=== PATIENT | female | born 1995 | race Caucasian/White ===

== ENCOUNTER 2021-10-11 11:50 | Emergency (ER) | payer OTHER ==
[~2021-10-11] VITALS: Ht 165.1 cm; Wt 65.8 kg
[2021-10-11 12:02] VITALS: BP 105/64
--- NOTE | 2021-10-11 12:04 | NUR ---
AT BEDSIDE FOR EVAL.
[2021-10-11] MEDS ORDERED: PRED50TA PO (12:07)
--- NOTE | 2021-10-11 12:14 | NUR ---
Patient discharged to home in stable condition. Written and verbal after care instructions given. Patient verbalizes understanding of instruction.
== END 2021-10-11 12:15 | disposition home or self-care (01) ==
LOC: ER 11:53
DX: G51.0 Bell's palsy (principal); F32.A Depression, unspecified; F41.9 Anxiety disorder, unspecified; F17.200 Nicotine dependence, unspecified, uncomplicated; Z79.52 Long term (current) use of systemic steroids